=== PATIENT | female | born 1975 | race African-American/Black ===

== ENCOUNTER 2017-12-09 11:45 | Observation (INO) | payer MEDICARE, MEDICAID ==
[~2017-12-09] VITALS: Ht 160 cm; Wt 63.5 kg
[~2017-12-09 11:45] MED LIST: PHEN100C4 PO
[2017-12-09 12:27] LABS: HEMATOCRIT. 30.8 % (36.0-48.0); HEMOGLOBIN. 9.5 g/dL (12.0-16.0); MEAN CORPUSCULAR HEMOGLOBIN 26.2 pg (28.0-32.0); MEAN CORPUSCULAR VOLUME 84.6 fL (81.0-99.0); MEAN PLATELET VOLUME 6.5 fl (7.4-10.4); PLATELET 345 x1000/uL (130-400); RED BLOOD CELL COUNT 3.65 mill/uL (4.2-5.4); RED CELL DISTRIBUTION WIDTH 17.5 % (11.6-14.6)
[2017-12-09 12:32] LABS: BASOPHILS % 0.2 % (0.0-2.0); EOSINOPHILS % 0.2 % (0.0-5.0); LYMPHOCYTES % 9.4 % (20.0-50.0); MONOCYTES % 5.3 % (2.0-8.0); NEUTROPHILS % 84.9 % (40.0-76.0)
[2017-12-09 12:35] LABS: PROTHROMBIN TIME 10.8 sec (9.4-11.6)
[2017-12-09 12:43] LABS: CARBON DIOXIDE 22 mEq/L (21-32); CHLORIDE 106 mEq/L (98-107)
[2017-12-09] MEDS ORDERED: SODIUM CHLORIDE 0.9% 1,000 ML IV ONE (12:59)
[2017-12-09 13:13] LABS: HCG SCREEN NEGATIVE
[2017-12-09] MEDS ORDERED: PHENYTOIN SODIUM 1,000 MG in SODIUM CHLORIDE 0.9% 100 ML IV ONE (13:30)
[2017-12-09] MEDS ORDERED: LORAZEPAM 2MG/ML CPJ IV NR (13:30)
[2017-12-09] MEDS ORDERED: LORAZEPAM 2MG/ML CPJ ONE (13:38)
[2017-12-09 16:36] LABS: CLARITY URINE CLEAR (CLEAR); COLOR URINE YELLOW (YELLOW); KETONES URINE TRACE (NEGATIVE); LEUKOCYTE ESTERASE URINE NEGATIVE (NEGATIVE); NITRITE URINE NEGATIVE (NEGATIVE); OCCULT BLOOD URINE NEGATIVE (NEGATIVE); PROTEIN URINE 1+ (NEGATIVE); SPECIFIC GRAVITY URINE 1.022 (1.005-1.030)
[2017-12-09] MEDS ORDERED: MIDAZOLAM HCL 2 MG/2 ML VIAL IV ONE (17:30)
[2017-12-09] MEDS ORDERED: LEVETIRACETAM IN NACL (ISO-OS) 100 ML IV ONE (17:30)
[2017-12-09] MEDS ORDERED: MIDAZOLAM HCL 2 MG/2 ML VIAL ONE (17:30)
[2017-12-09] MEDS ORDERED: ACETAMINOPHEN 650MG/20.3ML UDC PO PRN (17:45)
[2017-12-09] MEDS ORDERED: DEXT 5%/0.45% NACL 500ML 500 ML IV SCH (17:45)
[2017-12-09] MEDS ORDERED: ENOXAPARIN 30MG/0.3ML SYR SUBCUT SCH (17:45)
[2017-12-09] MEDS ORDERED: LORAZEPAM 2MG/ML CPJ IV PRN (17:45)
[2017-12-09 20:50] VITALS: BP 90/48
[2017-12-09 21:00] VITALS: BP 90/49
[2017-12-09] MEDS: PANTOPRAZOLE 40MG DR TABLET PO SCH (21:30)
[2017-12-09 22:00] VITALS: BP 127/64
[2017-12-09] MEDS: PHENYTOIN SODIUM EXTENDED 100MG CAPSULE PO SCH (22:00)
[2017-12-09] MEDS ORDERED: ENOXAPARIN 40MG/0.4ML SYR SUBCUT SCH (22:00)
[2017-12-09] MEDS ORDERED: DEXT 5%/0.45% NACL 1000ML 500 ML IV NR (22:15)
[2017-12-09] MEDS ORDERED: DEXT 5%/0.45% NACL 1000ML 1,000 ML IV SCH (22:15)
[2017-12-10] VITALS (10 sets, daily range): BP systolic 96–139; BP diastolic 54–73
[2017-12-10] MEDS: PHENYTOIN SODIUM EXTENDED 100MG CAPSULE PO SCH ×2 (06:00→14:24)
[2017-12-10] MEDS: PANTOPRAZOLE 40MG DR TABLET PO SCH (06:50)
[2017-12-10 07:41] LABS: BASOPHILS % 0.4 % (0.0-2.0); EOSINOPHILS % 0.1 % (0.0-5.0); HEMATOCRIT. 26.9 % (36.0-48.0); HEMOGLOBIN. 8.7 g/dL (12.0-16.0); LYMPHOCYTES % 26.3 % (20.0-50.0); MEAN CORPUSCULAR HEMOGLOBIN 26.7 pg (28.0-32.0); MEAN CORPUSCULAR VOLUME 82.9 fL (81.0-99.0); MONOCYTES % 9.9 % (2.0-8.0); NEUTROPHILS % 63.3 % (40.0-76.0); PLATELET 315 x1000/uL (130-400); RED BLOOD CELL COUNT 3.24 mill/uL (4.2-5.4); RED CELL DISTRIBUTION WIDTH 17.5 % (11.6-14.6)
[2017-12-10] MEDS ORDERED: LEVETIRACETAM 500MG TABLET PO SCH (09:00)
[2017-12-10] MEDS ORDERED: LAMO25TA4 PO (09:29)
[2017-12-10] MEDS ORDERED: LAMOTRIGINE 25MG TABLET PO SCH ×4 (09:45→21:00)
[2017-12-10] MEDS ORDERED: LORAZEPAM 2MG/ML CPJ IV PRN (11:45)
[2017-12-10] MEDS ORDERED: FAMOTIDINE 20MG TABLET PO SCH (21:00)
== END 2017-12-10 16:35 | disposition home or self-care (01) ==
LOC: ER 12:01 → EDBEDREQTM 16:30 → 3WST 16:35 → INTOOBSV 16:35 → EDBEDREQ 16:38 → ENRESERV 18:50
PROVIDERS: ADMIT Internal Medicine; ATTEND Internal Medicine
DX: G40.901 Epilepsy, unspecified, not intractable, with status epilepticus (principal); D64.9 Anemia, unspecified; I51.9 Heart disease, unspecified; Z91.14 Patient's other noncompliance with medication regimen; Z86.73 Personal history of transient ischemic attack (TIA), and cerebral infarction without residual deficits
CPT/HCPCS: 36415; 70450; 71045; 80053; 80185; 81001; 83605; 84443; 84703; 85025; 85610; 87040; 93005; 96365; 96366; 96372; 96375; 99291; G0378; J1165; J1650; J1953; J2060; J2250; J7030; J7050

== ENCOUNTER 2018-08-22 12:24 | Emergency (ER) | payer MEDICAID, MEDICARE ==
[~2018-08-22] VITALS: Ht 172.7 cm; Wt 73.0 kg
[~2018-08-22 12:24] MED LIST changes: +LAMO25TA4 PO
[2018-08-22] MEDS ORDERED: LORAZEPAM 2MG/ML CPJ IV ONE (12:45)
[2018-08-22 13:34] LABS: HCG SCREEN NEGATIVE
[2018-08-22 14:54] LABS: CLARITY URINE CLOUDY (CLEAR); COLOR URINE BLOODY (YELLOW); KETONES URINE TRACE (NEGATIVE); LEUKOCYTE ESTERASE URINE TRACE (NEGATIVE); NITRITE URINE NEGATIVE (NEGATIVE); OCCULT BLOOD URINE 3+ (NEGATIVE); PH URINE 5.5 (4.5-8.0); PROTEIN URINE 2+ (NEGATIVE); SPECIFIC GRAVITY URINE 1.014 (1.005-1.030)
[2018-08-22 15:09] LABS: *AMPHETAMINES SCREEN URINE NEGATIVE (NEGATIVE); *BARBITURATES SCREEN URINE NEGATIVE (NEGATIVE)
[2018-08-22 15:10] LABS: *BENZODIAZEPINES SCREEN URINE NEGATIVE (NEGATIVE); *COCAINE SCREEN URINE NEGATIVE (NEGATIVE); OPIATES URINE SCREEN NEGATIVE (NEGATIVE); PHENCYCLIDINE URINE SCREEN NEGATIVE (NEGATIVE)
[2018-08-22 15:12] LABS: METHADONE URINE SCREEN NEGATIVE (NEGATIVE)
[2018-08-22 15:29] LABS: CANNABINOID URINE SCREEN PRESUMTIVE POSITIVE (NEGATIVE)
[2018-08-22 15:50] LABS: BASOPHILS % 0.2 % (0.0-2.0); EOSINOPHILS % 0.1 % (0.0-5.0); HEMATOCRIT. 39.3 % (36.0-48.0); HEMOGLOBIN. 12.7 g/dL (12.0-16.0); LYMPHOCYTES % 7.2 % (20.0-50.0); MEAN CORPUSCULAR HEMOGLOBIN 31.2 pg (28.0-32.0); MEAN CORPUSCULAR VOLUME 96.2 fL (81.0-99.0); MEAN PLATELET VOLUME 8.5 fl (7.4-10.4); MONOCYTES % 4.9 % (2.0-8.0); NEUTROPHILS % 87.6 % (40.0-76.0); PLATELET 175 x1000/uL (130-400); RED BLOOD CELL COUNT 4.08 mill/uL (4.2-5.4); RED CELL DISTRIBUTION WIDTH 17.2 % (11.6-14.6)
[2018-08-22 15:54] LABS: CHLORIDE 102 mEq/L (98-107)
[2018-08-22 15:58] LABS: ETHANOL BLOOD < 10 mg/dL
[2018-08-22] MEDS ORDERED: PHENYTOIN SODIUM 1,000 MG in SODIUM CHLORIDE 0.9% 100 ML IV ONE (16:45)
[2018-08-22] MEDS ORDERED: KETOROLAC 15MG/ML VIAL IV ONE (16:45)
[2018-08-22 21:34] VITALS: BP 106/61
== END 2018-08-22 21:36 | disposition home or self-care (01) ==
LOC: ER 13:21
DX: R56.9 Unspecified convulsions (principal); R51 Headache; I25.2 Old myocardial infarction; V89.2XXA Person injured in unspecified motor-vehicle accident, traffic, initial encounter; Y93.89 Activity, other specified; Y92.89 Other specified places as the place of occurrence of the external cause; Y99.8 Other external cause status; Z86.73 Personal history of transient ischemic attack (TIA), and cerebral infarction without residual deficits; Z98.84 Bariatric surgery status; Z88.1 Allergy status to other antibiotic agents; Z88.8 Allergy status to other drugs, medicaments and biological substances
CPT/HCPCS: 36415; 70450; 71045; 80053; 80185; 80305; 81003; 81025; 84703; 85025; 87086; 93005; 96365; 96374; 96375; 99285; G0482; J1165; J1885; J2060; Z7610; J7050

== ENCOUNTER 2021-12-04 15:53 | Emergency (ER) | payer MEDICAID ==
[~2021-12-04] VITALS: Ht 167.6 cm; Wt 70.0 kg
[~2021-12-04 15:53] MED LIST changes: -LAMO25TA4 PO; +LAMO25TA9 PO
[2021-12-04 19:57] LABS: BASOPHILS % 0.4 % (0.0-2.0); EOSINOPHILS % 0.5 % (0.0-5.0); HEMATOCRIT. 38.3 % (36.0-48.0); HEMOGLOBIN. 13.1 g/dL (12.0-16.0); LYMPHOCYTES % 28.2 % (20.0-50.0); MEAN CORPUSCULAR HEMOGLOBIN 32.4 pg (28.0-32.0); MEAN CORPUSCULAR VOLUME 94.5 fL (81.0-99.0); MEAN PLATELET VOLUME 7.2 fl (7.4-10.4); NEUTROPHILS % 61.9 % (40.0-76.0); PLATELET 306 x1000/uL (130-400); RED BLOOD CELL COUNT 4.05 mill/uL (4.2-5.4); RED CELL DISTRIBUTION WIDTH 13.1 % (11.6-14.6)
[2021-12-04 20:00] LABS: CHLORIDE 103 mEq/L (98-107)
[2021-12-04 20:05] LABS: ETHANOL BLOOD < 10 mg/dL
[2021-12-04] MEDS ORDERED: POTASSIUM CHLORIDE 20MEQ TABLET SR PO ONE (20:15)
[2021-12-04 20:29] LABS: CLARITY URINE CLEAR (CLEAR); COLOR URINE YELLOW (YELLOW); KETONES URINE 1+ (NEGATIVE); LEUKOCYTE ESTERASE URINE TRACE (NEGATIVE); NITRITE URINE NEGATIVE (NEGATIVE); OCCULT BLOOD URINE 1+ (NEGATIVE); PH URINE 5.5 (4.5-8.0); PROTEIN URINE NEGATIVE (NEGATIVE); SPECIFIC GRAVITY URINE 1.016 (1.005-1.030)
[2021-12-04] MEDS ORDERED: PHENYTOIN SODIUM 100MG/2ML VIAL IV ONE (20:45)
[2021-12-04 20:47] LABS: *AMPHETAMINES SCREEN URINE NEGATIVE (NEGATIVE); *BARBITURATES SCREEN URINE NEGATIVE (NEGATIVE); *BENZODIAZEPINES SCREEN URINE NEGATIVE (NEGATIVE)
[2021-12-04 20:48] LABS: *COCAINE SCREEN URINE NEGATIVE (NEGATIVE); CANNABINOID URINE SCREEN NEGATIVE (NEGATIVE); METHADONE URINE SCREEN NEGATIVE (NEGATIVE); OPIATES URINE SCREEN NEGATIVE (NEGATIVE); PHENCYCLIDINE URINE SCREEN NEGATIVE (NEGATIVE)
[2021-12-04] MEDS ORDERED: LAMO25TA9 PO (22:01)
[2021-12-04] MEDS ORDERED: PHEN100C4 PO (22:01)
[2021-12-04 23:08] VITALS: BP 126/82
== END 2021-12-04 23:18 | disposition home or self-care (01) ==
LOC: ER 15:53
DX: G40.909 Epilepsy, unspecified, not intractable, without status epilepticus (principal); I51.9 Heart disease, unspecified; F99 Mental disorder, not otherwise specified; Z86.73 Personal history of transient ischemic attack (TIA), and cerebral infarction without residual deficits; Z98.84 Bariatric surgery status; Z88.0 Allergy status to penicillin
CPT/HCPCS: 36415; 80053; 80185; 80305; 80320; 81003; 85025; 96374; 99285; J1165; G0480